=== PATIENT | female | born 1935 | race African-American/Black ===

== ENCOUNTER 2017-09-18 14:23 | Emergency (ER) | payer OTHER, MEDICAID ==
[~2017-09-18] VITALS: Ht 172.7 cm; Wt 55.0 kg
[~2017-09-18 14:23] MED LIST: GLYB5TAB7 PO
[2017-09-18] MEDS ORDERED: SODIUM CHLORIDE 0.9% 1,000 ML IV ONE (14:31)
[2017-09-18] MEDS ORDERED: FAMOTIDINE 20MG/2ML VIAL IV ONE (14:45)
[2017-09-18 15:22] LABS: BASOPHILS % 0.6 % (0.0-2.0); EOSINOPHILS % 0.2 % (0.0-5.0); HEMATOCRIT. 31.5 % (36.0-48.0); HEMOGLOBIN. 10.7 g/dL (12.0-16.0); LYMPHOCYTES % 12.8 % (20.0-50.0); MEAN CORPUSCULAR HEMOGLOBIN 30.4 pg (28.0-32.0); MEAN CORPUSCULAR VOLUME 89.8 fL (81.0-99.0); MEAN PLATELET VOLUME 9.2 fl (7.4-10.4); MONOCYTES % 10.3 % (2.0-8.0); NEUTROPHILS % 76.1 % (40.0-76.0); PLATELET 172 x1000/uL (130-400); RED BLOOD CELL COUNT 3.51 mill/uL (4.2-5.4); RED CELL DISTRIBUTION WIDTH 13.3 % (11.6-14.6)
[2017-09-18 15:33] LABS: CARBON DIOXIDE 18 mEq/L (21-32); CHLORIDE 96 mEq/L (98-107); CREATINE KINASE 135 IU/L (26-192); ETHANOL BLOOD < 10 mg/dL; TROPONIN I < 0.02 ng/mL (0.00-0.04)
[2017-09-18 16:50] LABS: *AMPHETAMINES SCREEN URINE NEGATIVE (NEGATIVE); *BARBITURATES SCREEN URINE NEGATIVE (NEGATIVE); *BENZODIAZEPINES SCREEN URINE NEGATIVE (NEGATIVE); *COCAINE SCREEN URINE NEGATIVE (NEGATIVE); CANNABINOID URINE SCREEN NEGATIVE (NEGATIVE); METHADONE URINE SCREEN NEGATIVE (NEGATIVE); OPIATES URINE SCREEN NEGATIVE (NEGATIVE); PHENCYCLIDINE URINE SCREEN NEGATIVE (NEGATIVE)
[2017-09-18] MEDS ORDERED: CLOPIDOGREL 75MG TABLET PO ONE (20:30)
[2017-09-18 20:31] VITALS: BP 129/61
== END 2017-09-18 20:45 | disposition home or self-care (01) ==
LOC: ER 14:25
DX: G45.9 Transient cerebral ischemic attack, unspecified (principal); I10 Essential (primary) hypertension; F03.90 Unspecified dementia, unspecified severity, without behavioral disturbance, psychotic disturbance, mood disturbance, and anxiety; E11.9 Type 2 diabetes mellitus without complications
CPT/HCPCS: 36415; 70450; 80053; 80305; 82550; 84484; 85025; 96361; 96374; 99285; G0482; J3490; J7030; A4315